=== PATIENT | male | born 1970 | race African-American/Black ===

== ENCOUNTER 2017-07-08 13:53 | Emergency (ER) | payer BC ==
[~2017-07-08] VITALS: Ht 200.7 cm; Wt 190.0 kg
[~2017-07-08 13:53] MED LIST: BLOOD PRESSURE MED; HEART MED; KEFLEX500 MG PO; TOBRAMYCIN0.3 % OS
[2017-07-08] MEDS ORDERED: TOBRAMYCIN0.3 % OP (14:43)
[2017-07-08 15:00] VITALS: BP 146/84
== END 2017-07-08 15:00 | disposition home or self-care (01) | DRG 125 ==
LOC: ED 13:53
DX: H10.9 Unspecified conjunctivitis (principal)

== ENCOUNTER 2021-11-28 07:54 | Emergency (ER) | payer BC ==
[~2021-11-28] VITALS: Ht 200.7 cm; Wt 195.5 kg
[~2021-11-28 07:54] MED LIST changes: +TOBRAMYCIN0.3 % OP
[2021-11-28 08:49] LABS: HEMATOCRIT 48.8 % (39.0-50.0); HEMOGLOBIN 15.7 g/dl (14.0-18.0); IMMATURE GRANULOCYTES 0.1 % (0.0-5.0); MEAN CELL VOLUME 91.6 fL CALC (80.0-100.0); MEAN CORPUSCULAR HGB 29.5 pG CALC (26.0-32.0); MEAN CORPUSCULAR HGB CONC 32.2 g/dL CAL (32.0-36.0); NEUT# 5.39 thou/uL (1.82-7.42); RED BLOOD COUNT 5.33 mill/uL (4.70-6.10); RED CELL DISTRI WIDTH 14.5 % (11.5-15.5)
[2021-11-28 09:00] LABS: ALBUMIN 4.3 g/dL (3.2-5.0); ALKALINE PHOSPHATASE 92 u/l (38-126); AMYLASE 111 u/l (30-110); ANION GAP 10 (6-22 (CALC)); BILIRUBIN, TOTAL 1.3 mg/dL (0.0-1.4); BUN 19 mg/dL (9-20); BUN/CREATININE RATIO 22 (12-20 (CALC)); CARBON DIOXIDE 26 mmol/l (22-30); CHLORIDE 106 mmol/l (95-108); CREATININE 0.9 mg/dL (0.7-1.3); GFR > 60 ML/MIN (>=60 (CALC)); GFR FOR AFR.AMER. > 60 ML/MIN (>=60 (CALC)); LIPASE 76 u/l (23-300); POTASSIUM 4.1 mmol/l (3.5-5.1); SGOT/AST 39 u/l (17-59); SODIUM 138 mmol/l (137-146)
[2021-11-28] MEDS ORDERED: METOPROLOL SUCC50 MG PO (09:32)
[2021-11-28] MEDS ORDERED: COREG25 MG PO (09:32)
[2021-11-28] MEDS ORDERED: ASPIRIN LOW81 M1 PO (09:32)
[2021-11-28 10:15] LABS: URINE BILIRUBIN - DIPSTICK NEGATIVE (NEGATIVE); URINE BLOOD DIPSTICK NEGATIVE (NEGATIVE); URINE COLOR YELLOW; URINE GLUCOSE - DIPSTICK NEGATIVE (NEGATIVE); URINE KETONE NEGATIVE (NEGATIVE); URINE LEUK ESTERASE NEGATIVE (NEGATIVE); URINE PH 5.5 (4.5-8.0); URINE PROTEIN - DIPSTICK NEGATIVE (NEG-TRACE); URINE SPECIFIC GRAVITY 1.025; URINE UROBILINOGEN - DIPSTICK 0.2 E.U./dL (0.2)
[2021-11-28 10:16] LABS: URINE NITRITE - DIPSTICK NEGATIVE (Negative)
[2021-11-28] MEDS ORDERED: PROTONIX40 M2 PO (12:19)
[2021-11-28 12:43] VITALS: BP 159/88
== END 2021-11-28 12:45 | disposition home or self-care (01) | DRG 178 ==
LOC: ED 07:54
DX: U07.1 COVID-19 (principal); A08.39 Other viral enteritis; I48.91 Unspecified atrial fibrillation; I10 Essential (primary) hypertension
CPT/HCPCS: Q9967; S0164

== ENCOUNTER 2022-02-06 12:30 | Emergency (ER) | payer OTHER, BC ==
[2022-02-06] VITALS (7 sets, daily range): BP systolic 99–137; BP diastolic 60–85
[~2022-02-06] VITALS: Ht 200.7 cm; Wt 190.0 kg
[~2022-02-06 12:30] MED LIST changes: +ASPIRIN LOW81 M1 PO; +COREG25 MG PO; +METOPROLOL SUCC50 MG PO; +PROTONIX40 M2 PO
[2022-02-06] MEDS ORDERED: OFLOXACIN0.3 % OD (14:41)
== END 2022-02-06 14:55 | disposition home or self-care (01) | DRG 125 ==
LOC: ED 12:30
DX: S05.01XA Injury of conjunctiva and corneal abrasion without foreign body, right eye, initial encounter (principal); I10 Essential (primary) hypertension; I48.91 Unspecified atrial fibrillation; F17.200 Nicotine dependence, unspecified, uncomplicated; X58.XXXA Exposure to other specified factors, initial encounter; Y92.89 Other specified places as the place of occurrence of the external cause; Y99.0 Civilian activity done for income or pay

== ENCOUNTER 2022-06-23 05:06 | Emergency (ER) | payer OTHER, BC ==
[~2022-06-23] VITALS: Ht 200.7 cm; Wt 190.0 kg
[2022-06-23] VITALS (8 sets, daily range): BP systolic 121–135; BP diastolic 72–87
[~2022-06-23 05:06] MED LIST changes: +OFLOXACIN0.3 % OD
[2022-06-23] MEDS ORDERED: D32000 UNI1 PO (05:40)
[2022-06-23] MEDS ORDERED: MULTI 50+ PO (05:40)
[2022-06-23 06:14] LABS: HEMATOCRIT 46.4 % (39.0-50.0); HEMOGLOBIN 15.3 g/dl (14.0-18.0); IMMATURE GRANULOCYTES 0.3 % (0.0-5.0); MEAN CELL VOLUME 90.4 fL CALC (80.0-100.0); MEAN CORPUSCULAR HGB 29.8 pG CALC (26.0-32.0); NEUT# 10.09 thou/uL (1.82-7.42); RED BLOOD COUNT 5.13 mill/uL (4.70-6.10); RED CELL DISTRI WIDTH 14.3 % (11.5-15.5)
[2022-06-23 06:37] LABS: INTERNATIONAL NORMALIZED RATIO 1.2 RATIO (0.7-1.3)
[2022-06-23 06:38] LABS: ALKALINE PHOSPHATASE 73 u/l (38-126); ANION GAP 12 (6-22 (CALC)); BILIRUBIN, TOTAL 1.7 mg/dL (0.0-1.4); BUN 19 mg/dL (9-20); BUN/CREATININE RATIO 19 (12-20 (CALC)); CARBON DIOXIDE 24 mmol/l (22-30); CHLORIDE 107 mmol/l (95-108); GFR FOR AFR.AMER. > 60 ML/MIN (>=60 (CALC)); GFR OTHER RACES > 60 ML/MIN (>=60 (CALC)); POTASSIUM 3.8 mmol/l (3.5-5.1); SGOT/AST 25 u/l (17-59); SODIUM 138 mmol/l (137-146); TOTAL PROTEIN 7.6 g/dL (6.3-8.2)
[2022-06-23] MEDS ORDERED: CEPHALEXIN500 M1 PO (08:01)
[2022-06-23] MEDS ORDERED: TERBINAFINE1 % EX (08:19)
== END 2022-06-23 08:52 | disposition home or self-care (01) | DRG 603 ==
LOC: ED 05:06
PROVIDERS: Emergency Medicine
DX: L03.116 Cellulitis of left lower limb (principal); I10 Essential (primary) hypertension; I48.91 Unspecified atrial fibrillation; Z20.822 Contact with and (suspected) exposure to COVID-19

== ENCOUNTER 2023-06-10 11:17 | Observation (INO) | payer BC ==
[2023-06-10] VITALS (15 sets, daily range): BP systolic 118–170; BP diastolic 78–115
[~2023-06-10] VITALS: Ht 200.7 cm; Wt 187.0 kg
[~2023-06-10 11:17] MED LIST changes: +CEPHALEXIN500 M1 PO; +D32000 UNI1 PO; +MULTI 50+ PO; +TERBINAFINE1 % EX
--- NOTE | 2023-06-10 11:17 | NUR ---
PATIENT PRESENTS WITH A RIGHT SIDED HEADACHE. SHARP IN NATURE. SUDDEN ONSET. STROKE ALERT CALLED AND PATIENT TAKEN DIRECTLY TO CT SCAN. PATIENT ALERT AND ORIENTED X3. NO DEFICITS NOTED.
--- NOTE | 2023-06-10 11:25 | NUR ---
PATIENT TO CT FOR STROKE ALERT. EVALUATED BY DR. FRENCH TELE NEURO.
[2023-06-10 11:50] LABS: BASO% 0.6 % (0-3); EOS% 1.1 % (0-8); HEMATOCRIT 47.2 % (39.0-50.0); HEMOGLOBIN 15.2 g/dl (14.0-18.0); IMMATURE GRANULOCYTES 0.1 % (0.0-5.0); LYMPH% 25.9 % (15-41); MEAN CELL VOLUME 91.5 fL CALC (80.0-100.0); MEAN CORPUSCULAR HGB 29.5 pG CALC (26.0-32.0); MEAN CORPUSCULAR HGB CONC 32.2 g/dL CAL (32.0-36.0); NEUT# 5.95 thou/uL (1.82-7.42); NEUT% 66.3 % (42-76); RED BLOOD COUNT 5.16 mill/uL (4.70-6.10); RED CELL DISTRI WIDTH 13.5 % (11.5-15.5)
--- NOTE | 2023-06-10 12:00 | NUR ---
RETURNED TO THE ED FROM CT SCAN. TALKING TO PATIENT ABOUT HIS MEDICATIONS WHEN HE STATED HE IS ALERGIC TO SHELLFISH. SN SUPRISED BECAUSE PATIENT WAS ASKED BY SN WHILE DOWN IN CT SCAN IF HE HAD ANY ALLERGIES TO MEDICATIONS. HUY WRIGHT , ER DIRECTOR PRESENT AT THAT TIME. PATIENT STATED HE HAD NO ALLERGIES TO HIS KNOWLEDGE. DR. MCINTOSH MADE AWARE OF SHELLFISH ALLERGY . PATIENT IS DOING WELL . NO SOB , SCRATCHY THROAT , OR HIVES. WILL CONTINUE TO MONITOR. INFORMED SN THAT SHE DOSEN'T BELIEVE ITS A TRUE ALLERGY.
[2023-06-10 12:04] LABS: ALBUMIN 4.5 g/dL (3.2-5.0); ALKALINE PHOSPHATASE 73 u/l (38-126); ANION GAP 12 (6-22 (CALC)); BILIRUBIN, TOTAL 0.6 mg/dL (0.2-1.3); BUN 16 mg/dL (9-20); BUN/CREATININE RATIO 17 (12-20 (CALC)); CALCULATED LDLCHOLESTEROL 107 mg/dL (62-129 (CALC)); CARBON DIOXIDE 26 mmol/l (22-30); CHLORIDE 106 mmol/l (95-108); CHOLESTEROL HDL RATIO 2.6 (<4.4 (CALC)); GFR FOR AFR.AMER. > 60 ML/MIN (>=60 (CALC)); GFR OTHER RACES > 60 ML/MIN (>=60 (CALC)); HDL CHOLESTEROL 82 mg/dL (39.0-59.0); POTASSIUM 4.4 mmol/l (3.5-5.1); SGOT/AST 31 u/l (17-59); SODIUM 139 mmol/l (137-146); TOTAL CHOLESTEROL 215 mg/dl (0-199); TOTAL PROTEIN 7.8 g/dL (6.3-8.2); TOTAL TRIGLYCERIDES 129 mg/dl (0-149); VLDL CHOLESTROL 26 mg/dl (8-62 (CALC))
[2023-06-10 12:16] LABS: PROTHROMBIN TIME 10.2 SECONDS (9.0-12.5)
[2023-06-10 13:25] LABS: URINE BILIRUBIN - DIPSTICK Negative (NEGATIVE); URINE BLOOD DIPSTICK Negative (NEGATIVE); URINE COLOR Yellow; URINE GLUCOSE - DIPSTICK Negative (NEGATIVE); URINE KETONE Negative (NEGATIVE); URINE LEUK ESTERASE Negative (NEGATIVE); URINE NITRITE - DIPSTICK Negative (Negative); URINE PH 7.5 (4.5-8.0); URINE PROTEIN - DIPSTICK Negative (NEG-TRACE); URINE SPECIFIC GRAVITY 1.015; URINE UROBILINOGEN - DIPSTICK 0.2 E.U./dL (0.2)
[2023-06-10] MEDS ORDERED: AMLODIPINE BESYL5 MG PO (13:42)
[2023-06-10] MEDS ORDERED: HYDROCHLOROT12.5 M1 PO (13:42)
--- NOTE | 2023-06-10 14:09 | NUR ---
PATIENT RESTING , NO DISTRESS. V/S STABLE. HEADACHE HAS SUBSIDED
--- NOTE | 2023-06-10 16:21 | NUR ---
PATIENT ARRIVED TO [facility]. ASSESSMENT DONE. CALL LIGHT WITHIN REACH. WILL CONTINUE TO MONITOR.
[2023-06-10] MEDS ORDERED: FISH OIL1 CAP PO (17:13)
[2023-06-10] MEDS ORDERED: RA IRON65 MG PO (17:19)
[2023-06-11] VITALS (8 sets, daily range): BP systolic 125–139; BP diastolic 70–96
--- NOTE | 2023-06-11 01:58 | NUR ---
PT ALERT AND ORIENTED . STATES"TINGLING HAS SUBSIDED" ON TELE AFIB HR 82. BED LOCKED CALL LIGHTN IN REACH
--- NOTE | 2023-06-11 04:42 | NUR ---
PT SLEPT WELL. ON TELE AFIB. VSS. BED IS LOCKED. CALL LIGHT IN REACH
[2023-06-11 05:32] LABS: BASO% 0.6 % (0-3); EOS% 1.7 % (0-8); HEMATOCRIT 45.4 % (39.0-50.0); HEMOGLOBIN 14.6 g/dl (14.0-18.0); IMMATURE GRANULOCYTES 0.1 % (0.0-5.0); LYMPH% 24.8 % (15-41); MEAN CELL VOLUME 91.5 fL CALC (80.0-100.0); MEAN CORPUSCULAR HGB 29.4 pG CALC (26.0-32.0); MEAN CORPUSCULAR HGB CONC 32.2 g/dL CAL (32.0-36.0); MONO% 7.5 % (2-13); NEUT# 4.6 thou/uL (1.82-7.42); NEUT% 65.3 % (42-76); RED BLOOD COUNT 4.96 mill/uL (4.70-6.10); RED CELL DISTRI WIDTH 13.6 % (11.5-15.5)
[2023-06-11 05:47] LABS: ALBUMIN 3.8 g/dL (3.2-5.0); ALKALINE PHOSPHATASE 64 u/l (38-126); ANION GAP 8 (6-22 (CALC)); BILIRUBIN, TOTAL 0.8 mg/dL (0.2-1.3); BUN 18 mg/dL (9-20); BUN/CREATININE RATIO 20 (12-20 (CALC)); C-REACTIVE PROTEIN 0.6 mg/dL (0-0.9); CARBON DIOXIDE 27 mmol/l (22-30); CHLORIDE 106 mmol/l (95-108); CPK 171 u/l (55-170); CREATININE 0.9 mg/dL (0.7-1.3); GFR FOR AFR.AMER. > 60 ML/MIN (>=60 (CALC)); GFR OTHER RACES > 60 ML/MIN (>=60 (CALC)); MAGNESIUM 1.9 mg/dL (1.6-2.3); POTASSIUM 4.3 mmol/l (3.5-5.1); SGOT/AST 24 u/l (17-59); SODIUM 137 mmol/l (137-146); TOTAL PROTEIN 6.6 g/dL (6.3-8.2)
--- NOTE | 2023-06-11 07:00 | NUR ---
RECEIVED BEDSIDE REPORT FROM ADRIANA PIRES. PT LYING IN BED WITH EYES CLOSED. ALL SAFETY MEASURES IN PLACE. VSS. PT HAS MRI & PT TODAY.
--- NOTE | 2023-06-11 11:15 | NUR ---
INFORMATION ASSURANCE ENGINEER REPORTED TO RN THAT PT WAS UNWILLING TO GO FOR MRI SCAN. RN CONFIRMED WITH PT THAT HE DID NOT WANT TO GO INTO THE MACHINE.
--- NOTE | 2023-06-11 19:47 | NUR ---
BESIDE REPORT RECIEVED. PT A/OX3. RESPIRATIONS EVEN AND UNLABORED ON ROOM AIR. LUNG SOUNDS CLEAR. HEART RHYTHM NORMAL. BOWEL SOUNDS ACTIVE. #18G RAC PATENT. SKIN INTACT. PT C/O SCALP PAIN PAIN THAT COMES AND GOES THROUGHOUT THE DAY SINCE ADMISSION. PT STATES HE HAS INFORMED MD AND EXPRESSES HIS FRUSTATION WITH THE POC. PT INFORMED THAT MRI WAS NEEDED BUT PT REFUSES MRI, WANTING TO GO SOMEWHERE ELSE WITH AN "OPEN MRI". TERESO MATHEW INFORMED OF PT FRUSTRATIONS. ORDERS TO HAVE PT COMPLETE THE REPEAT CT THAT HAS BEEN ORDERED AND GO FROM THERE. PT AGREED. PT DENIES OF ANY NEEDS AT THIS TIME. PT ORIENTED TO ROOM AND CALL LIGHT SYSTEM. ALL SAFETY PRECAUTIONS ARE IN PLACE WITH CALL LIGHT IN REACH.
--- NOTE | 2023-06-11 23:59 | NUR ---
PT RESSTING IN SEMI FOWLERS POSITION. RESPIRATIONS EVEN AND UNLABORED ON ROOM AIR. TELE MONITORING IN PLACE. PT DENIES OF ANY NEEDS. ALL SAFETY PRECAUTIONS ARE IN PLACE WITH CALL LIGHT IN REACH
[2023-06-12] VITALS: BP 139/91
[2023-06-12 04:00] VITALS: BP 117/88
[2023-06-12 04:27] VITALS: BP 117/88
--- NOTE | 2023-06-12 04:30 | NUR ---
PT SLEEPING IN SEMI FOWLERS POSITION. RESPIRATIONS EVEN AND UNLABORED ON ROOM AIR. #18G RAC NOTED. TELE MONITORING IN PLACE. NO S/S OF DISTRESS. ALL SAFETY PRECAUTIONS ARE IN PLACE WITH CALL LIGHT IN REACH.
[2023-06-12 05:18] LABS: BASO% 0.6 % (0-3); EOS% 1.1 % (0-8); HEMATOCRIT 46.3 % (39.0-50.0); HEMOGLOBIN 15.2 g/dl (14.0-18.0); LYMPH% 25.8 % (15-41); MEAN CELL VOLUME 91.5 fL CALC (80.0-100.0); MEAN CORPUSCULAR HGB CONC 32.8 g/dL CAL (32.0-36.0); MONO% 6.1 % (2-13); NEUT# 4.7 thou/uL (1.82-7.42); NEUT% 66.4 % (42-76); RED BLOOD COUNT 5.06 mill/uL (4.70-6.10); RED CELL DISTRI WIDTH 13.5 % (11.5-15.5)
[2023-06-12 05:25] LABS: ALBUMIN 3.9 g/dL (3.2-5.0); ALKALINE PHOSPHATASE 61 u/l (38-126); ANION GAP 10 (6-22 (CALC)); BUN 18 mg/dL (9-20); BUN/CREATININE RATIO 21 (12-20 (CALC)); CARBON DIOXIDE 25 mmol/l (22-30); CHLORIDE 105 mmol/l (95-108); CREATININE 0.9 mg/dL (0.7-1.3); GFR FOR AFR.AMER. > 60 ML/MIN (>=60 (CALC)); GFR OTHER RACES > 60 ML/MIN (>=60 (CALC)); MAGNESIUM 1.8 mg/dL (1.6-2.3); POTASSIUM 4.2 mmol/l (3.5-5.1); SGOT/AST 27 u/l (17-59); SODIUM 136 mmol/l (137-146); TOTAL PROTEIN 6.8 g/dL (6.3-8.2)
[2023-06-12 06:10] VITALS: BP 117/82
--- NOTE | 2023-06-12 06:55 | NUR ---
REPORT RECEIVED FROM KATHLEEN GORMAN
--- NOTE | 2023-06-12 08:30 | NUR ---
PT RESTING AT BEDSIDE, A&O X3;ASSESSMENT COMPLETED;PT DENIES ANY CURRENT PAIN OR DISCOMFORTS AT THIS TIME, PAIN SCALE AND REPORTING EDUCATED;PT DENIES ANY SCALP PAIN OR TINGLING OF HANDS;RESPIRATIONS EVEN AND UNLABORED ON RA,CLEAR LUNG SOUNDS NOTED;ABDOMEN SOFT ON PALPATION AND ACTIVE IN ALL 4 QUADRANTS, LAST BM 06/12/23;STRONG PEDAL PULSES;SKIN INTACT;TELE MONITORING IN PLACE;#18G TO RAC FLUSHED AND PATENT,SITE APPEARS HEALTHY;NIH 0 AT THIS TIME;PT DENIES ANY ADDITIONAL NEEDS AND IS ENCOURAGED TO CALL FOR ASSISTANCE IF NEEDED;FALL PRECAUTIONS IN PLACE WITH BED IN THE LOWEST POSITION AND CALL LIGHT IN REACH;FREQUENT ROUNDS MADE.
--- NOTE | 2023-06-12 10:49 | NUR ---
AND ANABEL KEYS,TERESO AT BEDSIDE DISCUSSING POC WITH PT.
--- NOTE | 2023-06-12 11:03 | NUR ---
PT RESTING IN SEMI FOWLERS POSITION WATCHING TV;DENIES ANY CURRENT PAIN OR NEEDS;TELE MONITORING IN PLACE;CALL LIGHT IN REACH;FREQUENT ROUNDS MADE.
[2023-06-12 12:09] VITALS: BP 116/71
--- NOTE | 2023-06-12 12:15 | NUR ---
PT RESTING IN SEMI FOWLERS POSITION WITH ANNA CARBONE AT BEDSIDE OBTAINING VS;PT DENIES ANY CURRENT PAIN OR DISCOMFORTS;NIH REMAINS 0;RESPIRATIONS EVEN AND UNLABORED ON RA;#18G TO RAC PATENT;TELE MONITORING IN PLACE;PT ENCOURAGED TO CALL FOR ASSISTANCE IF NEEDED;CALL LIGHT IN REACH;FREQUENT ROUNDS MADE.
--- NOTE | 2023-06-12 12:22 | NUR ---
CARE RELINQUISHED TO ADRIANA MCGARRY AT THIS TIME.
[2023-06-12 15:01] VITALS: BP 111/72
[2023-06-12] MEDS ORDERED: ATORVASTATIN CA40 MG PO (15:54)
[2023-06-12] MEDS ORDERED: GABAPENTIN100 MG PO (15:55)
[2023-06-12] MEDS ORDERED: PLAVIX75 MG PO (15:56)
== END 2023-06-12 17:58 | disposition home or self-care (01) | DRG 69 ==
LOC: ED 11:17 → ED-I 11:42 → ED 11:42 → ED-I 12:50 → ED 14:44 → MS2 14:45
PROVIDERS: Family Medicine; Nurse Practitioner Family; ADMIT Student in an Organized Health Care Education/Training Program; ATTEND Student in an Organized Health Care Education/Training Program
DX: G45.9 Transient cerebral ischemic attack, unspecified (principal); I10 Essential (primary) hypertension; E11.9 Type 2 diabetes mellitus without complications; I48.91 Unspecified atrial fibrillation; I25.10 Atherosclerotic heart disease of native coronary artery without angina pectoris; E78.5 Hyperlipidemia, unspecified; F17.290 Nicotine dependence, other tobacco product, uncomplicated; F40.240 Claustrophobia; Z79.82 Long term (current) use of aspirin; Z53.29 Procedure and treatment not carried out because of patient's decision for other reasons
CPT/HCPCS: G0378; Q9967

== ENCOUNTER 2024-06-18 14:07 | Emergency (ER) | payer OTHER ==
[~2024-06-18] VITALS: Ht 200.7 cm; Wt 181.4 kg
[~2024-06-18 14:07] MED LIST changes: +AMLODIPINE BESYL5 MG PO; +ATORVASTATIN CA40 MG PO; +FISH OIL1 CAP PO; +GABAPENTIN100 MG PO; +HYDROCHLOROT12.5 M1 PO; +PLAVIX75 MG PO; +RA IRON65 MG PO
[2024-06-18 14:13] VITALS: BP 135/88
[2024-06-18 14:16] VITALS: BP 117/88
[2024-06-18] MEDS ORDERED: CYCLOBENZAPRINE HCL 5 MG TAB PO ONE (14:20)
[2024-06-18] MEDS ORDERED: ONDANSETRON 4 MG/TAB ODT PO ONE (14:20)
[2024-06-18] MEDS ORDERED: oxyCODONE 5MG/ ACETAMINOPHEN 325MG TAB PO ONE (14:20)
[2024-06-18 14:39] LABS: BASO% 0.4 % (0-3); EOS% 1.5 % (0-8); HEMATOCRIT 42.4 % (39.0-50.0); HEMOGLOBIN 14.1 g/dl (14.0-18.0); IMMATURE GRANULOCYTES 0.2 % (0.0-5.0); LYMPH% 28.2 % (15-41); MEAN CORPUSCULAR HGB 29.3 pG CALC (26.0-32.0); MEAN CORPUSCULAR HGB CONC 33.3 g/dL CAL (32.0-36.0); MONO% 5.2 % (2-13); NEUT# 5.23 thou/uL (1.82-7.42); NEUT% 64.5 % (42-76); RED BLOOD COUNT 4.82 mill/uL (4.70-6.10); RED CELL DISTRI WIDTH 13.7 % (11.5-15.5)
[2024-06-18 14:48] LABS: ALBUMIN 4.4 g/dL (3.2-5.0); CREATININE 1.1 mg/dL (0.7-1.3); POTASSIUM 3.6 mmol/l (3.5-5.1); TOTAL PROTEIN 7.6 g/dL (6.3-8.2)
[2024-06-18] MEDS ORDERED: MOTRIN800 MG PO (16:10)
[2024-06-18] MEDS ORDERED: FLEXERIL5 M1 PO (16:10)
[2024-06-18 16:13] VITALS: BP 117/88
== END 2024-06-18 16:13 | disposition home or self-care (01) | DRG 563 ==
LOC: ED 14:07
PROVIDERS: Nurse Practitioner Family
DX: S39.012A Strain of muscle, fascia and tendon of lower back, initial encounter (principal); S29.012A Strain of muscle and tendon of back wall of thorax, initial encounter; I10 Essential (primary) hypertension; E11.9 Type 2 diabetes mellitus without complications; I48.91 Unspecified atrial fibrillation; I25.10 Atherosclerotic heart disease of native coronary artery without angina pectoris; X50.0XXA Overexertion from strenuous movement or load, initial encounter; Y93.89 Activity, other specified; Y92.89 Other specified places as the place of occurrence of the external cause; Y99.0 Civilian activity done for income or pay